=== PATIENT | female | born 1965 | race Hispanic/Latino ===

== ENCOUNTER 2019-09-30 16:10 | Emergency (ER) | payer BC ==
[~2019-09-30] VITALS: Ht 165.1 cm; Wt 82.1 kg
[2019-09-30] MEDS ORDERED: ONDANSETRON HCL 4 MG ORAL DISINTEGRATING TAB PO ONE (16:30)
[2019-09-30] MEDS ORDERED: HYDROCODONE/APAP 10MG-325MG TAB PO ONE (16:30)
[2019-09-30] MEDS ORDERED: KETOROLAC TROMETHAMINE 60 MG/2 ML VIAL IM ONE (16:30)
[2019-09-30] MEDS ORDERED: BUPIVACAINE HCL 0.25% 10ML MPF VIAL INJ ONE (16:30)
== END 2019-09-30 16:51 | disposition home or self-care (01) ==
LOC: ER 16:10
DX: K08.89 Other specified disorders of teeth and supporting structures (principal); K02.9 Dental caries, unspecified
CPT/HCPCS: 99281; J1885; Q0162